=== PATIENT | male | born 1995 | race Caucasian/White ===

== ENCOUNTER 2017-09-01 23:55 | Emergency (ER) | payer OTHER ==
--- NOTE | 2017-09-02 00:25 | ERPHSYRPT ---
- History of Present Illness Time Seen by Provider: 09/02/17 00:16 Source: patient Exam Limitations: no limitations Patient Subjective Stated Complaint: Left testicle hurts, denies swelling, constant pain, feels like its being squeezed Triage Nursing Assessment: Pt A&O x3, stated that his left testicle hurts when he walks, feels like it's being squeezed, pain with palpation, vitals wnl, pulses normal, no change in color or temperature, does not appear to be in distress Physician History: 21-year-old white male arrives with complaint of pain in his left testicle symptoms since 6:30 states it's worse with walking and began after he was mowing the lawn. He denies hitting his groin or any other injury Patient denies any urethral discharge denies dysuria or hematuria. . Past medical history patient denies. Past surgical history patient denies. Timing/Duration: today (6:30 PM), worse Modifying Factors: Improves With: other (walking) Associated Symptoms: No nausea, No vomiting, No abdominal pain, No shortness of breath, No heartburn, No diaphoresis, No cough, No chills, No chest pain, No fever, No headaches, No loss of appetite, No malaise, No rash, No syncope, No seizure, No weakness Allergies/Adverse Reactions: No Known Drug Allergies Allergy (Verified 09/02/17 00:14) Home Medications: No Reportable Medications [No Reported Medications] 09/02/17 [History] - Review of Systems Constitutional: No Fever, No Chills Eyes: No Symptoms Ears, Nose, & Throat: No Symptoms Respiratory: No Cough, No Dyspnea Cardiac: No Chest Pain, No Edema, No Syncope Abdominal/Gastrointestinal: No Abdominal Pain, No Nausea, No Vomiting, No Diarrhea Genitourinary Symptoms: Other (left testicle pain) Musculoskeletal: No Back Pain, No Neck Pain Skin: No Rash Neurological: No Dizziness, No Focal Weakness, No Sensory Changes Psychological: No Symptoms Endocrine: No Symptoms All Other Systems: Reviewed and Negative - Past Medical History Pertinent Past Medical History: No - Past Surgical History Past Surgical History: No Musculoskeletal: Other Other Surgical History: broken pelvis and collarbone - Social History Smoking Status: Never smoker Drug Use: none Patient Lives Alone: No - Nursing Vital Signs Nursing Vital Signs: Initial Vital Signs Temperature 98.5 F 09/02/17 00:02 Pulse Rate 68 09/02/17 00:02 Blood Pressure 131/98 09/02/17 00:02 O2 Sat by Pulse Oximetry 98 09/02/17 00:02 Pain Scale Pain Intensity 0 - Physical Exam General Appearance: no apparent distress, alert Eye Exam: PERRL/EOMI, eyes nml inspection Ears, Nose, Throat Exam: normal ENT inspection, TMs normal, pharynx normal, moist mucous membranes Neck Exam: normal inspection, non-tender, supple, full range of motion Respiratory Exam: normal breath sounds, lungs clear, No respiratory distress Cardiovascular Exam: regular rate/rhythm, normal heart sounds, normal peripheral pulses Gastrointestinal/Abdomen Exam: soft, normal bowel sounds, No tenderness, No mass Male Genitalia Exam: other (normal male genitalia, testicles descended bilaterally no palpable hernia no testicular tenderness with palpapation no signs of torsion) Back Exam: normal inspection, normal range of motion, No CVA tenderness, No vertebral tenderness Extremity Exam: normal inspection, normal range of motion, pelvis stable Neurologic Exam: alert, oriented x 3, cooperative, food service team member II-XII nml as tested, normal mood/affect, nml cerebellar function, nml station & gait, sensation nml, No motor deficits Skin Exam: normal color, warm, dry, No rash Lymphatic Exam: No adenopathy SpO2 Interpretation: normal (98%) SpO2: 98 Oxygen Delivery: Room Air - Course Nursing assessment & vital signs reviewed: Yes Ordered Tests: Active Orders 24 hr Category Date Time Status IV Insertion STAT Care 09/02/17 00:48 Active BMP Stat Lab 09/02/17 00:48 Completed CBC W DIFF Stat Lab 09/02/17 00:48 Completed CULTURE,URINE Stat Lab 09/02/17 02:35 Received UA W/ MICROSCOPIC Stat Lab 09/02/17 02:35 Completed Medication Summary Discontinued Medications Generic Name Dose Route Start Last Admin Trade Name Freq PRN Reason Stop Dose Admin Sodium Chloride 1,000 mls @ 999 mls/hr 09/02/17 00:48 09/02/17 01:39 Sodium Chloride 0.9% 1000 Ml IV 09/02/17 01:48 Infused .Q1H1M STA Infusion Sodium Chloride Confirm 09/02/17 00:54 Sodium Chloride 0.9% 1000 Ml Administered 05/23/18 00:55 Dose 1,000 mls @ ud .ROUTE .STK-MED ONE Sodium Chloride 1,000 mls @ 999 mls/hr 09/02/17 01:32 09/02/17 02:57 Sodium Chloride 0.9% 1000 Ml IV 09/02/17 02:32 Infused .Q1H1M STA Infusion Sodium Chloride Confirm 09/02/17 01:32 Sodium Chloride 0.9% 1000 Ml Administered 09/02/17 01:33 Dose 1,000 mls @ ud .ROUTE .STK-MED ONE Lab/Rad Data: Laboratory Result Diagrams 09/02/17 00:48 09/02/17 00:48 Laboratory Results 09/02/17 09/02/17 09/02/17 Range/Units 02:35 00:48 00:48 WBC 14.3 H (4.0-10.5) K/mm3 RBC 4.92 (4.1-5.6) M/mm3 Hgb 14.8 (12.5-18.0) gm/dl Hct 42.5 (42-50) % MCV 86.4 (78-100) fl MCH 30.1 (26-32) pg MCHC 34.8 (32-36) g/dl RDW 12.4 (11.5-14.0) % Plt Count 305 (150-450) K/mm3 MPV 10.5 H (6-9.5) fl Gran % 61.9 (36.0-66.0) % Eos # (Auto) 0.04 (0-0.5) Absolute Lymphs (auto) 4.02 (1.0-4.6) Absolute Monos (auto) 1.35 H (0.0-1.3) Lymphocytes % 28.2 (24.0-44.0) % Monocytes % 9.5 (0.0-12.0) % Eosinophils % 0.3 (0.00-5.0) % Basophils % 0.1 (0.0-0.4) % Absolute Granulocytes 8.85 H (1.4-6.9) Basophils # 0.02 (0-0.4) Sodium 142 (137-145) mmol/L Potassium 3.8 (3.5-5.1) mmol/L Chloride 101 (98-107) mmol/L Carbon Dioxide 26 (22-30) mmol/L Anion Gap 18.7 H (5-15) MEQ/L BUN 22 H (9-20) mg/dL Creatinine 0.96 (0.66-1.25) mg/dL Estimated GFR > 60.0 ML/MIN Glucose 101 (74-106) mg/dL Calcium 9.4 (8.4-10.2) mg/dL Ur Collection Type VOID Urine Color YELLOW (YELLOW) Urine Appearance HAZY (CLEAR) Urine pH 6.0 (5-6) Ur Specific [place] 1.020 (1.005-1.025) Urine Protein TRACE (Negative) Urine Ketones SMALL (NEGATIVE) Urine Blood 50 (0-5) Willian/ul Urine Nitrite NEGATIVE (NEGATIVE) Urine Bilirubin NEGATIVE (NEGATIVE) Urine Urobilinogen NORMAL (0-1) mg/dL Ur Leukocyte Esterase NEGATIVE (NEGATIVE) Urine Microscopic RBC 2-5 (0-2) /HPF Urine Microscopic WBC 0-2 (0-5) /HPF Ur Epithelial Cells FEW (FEW) /HPF Urine Bacteria MODERATE (NEGATIVE) /HPF Urine Mucus MODERATE (NEGATIVE) /HPF Urine Culture Reflexed YES (NO) Urine Glucose NEGATIVE (NEGATIVE) mg/dL Specimen Received 09/02/17 0235 - Progress Progress: improved Progress Note: 09/02/17 00:26 21-year-old white male arrives with complaint of left testicle pain symptoms since 6:30 after mowing the lawn. He denies any injury states pain is worse with standing. Physical examination testicles descended bilaterally no palpable hernias no tenderness with palpation to the testicles. Will go ahead and obtain CBC BMP UA. Patient offered Toradol for pain he declined. 09/02/17 01:33 Patient has not provided a urine patient's white count is mildly elevated at around 14. Patient offered Toradol again he does not want any. Will give second liter of normal saline. Awaiting urinalysis remainder of labs 09/02/17 02:07 Still awaiting urine from this patient. Patient receiving second liter of normal saline. 09/02/17 02:56 Patient pain-free after 2 L of normal saline. Patient was 2-5 red cells per high-power field otherwise urine is negative. Patient did have a mild the increased white count of 14.3 hemoglobin 14 8 hematocrit 42.5 chemistry essentially normal with the exception and a gap is mildly elevated at 18.7. Will discharge patient. Diagnosis left testicle pain. Ureteral colic. Plan plenty of fluids. Tylenol every 4 hours as needed for pain or Motrin every 6 hours as needed for pain. Patient follow-up with his family doctor. Return for acute distress or for severe symptoms. - Departure Time of Disposition: 02:57 Departure Disposition: Home Clinical Impression: Left testicular pain, Ureteral colic Condition: Fair Critical Care Time: No Referrals: DOCTOR,NO FAMILY [Primary Care Provider] - Additional Instructions: Return home. Plenty of fluids. Tylenol every 4 hours or Motrin every 6 hours as needed for pain. Follow-up with your family doctor. Return for acute distress or for severe symptoms.
[2017-09-02] MEDS ORDERED: Sodium Chloride 0.9% 1000 ML 1,000 ML IV STA ×2 (00:48→01:32)
[2017-09-02] MEDS ORDERED: Sodium Chloride 0.9% 1000 ML 1,000 ML ONE ×2 (00:54→01:32)
[2017-09-02 01:03] LABS: BASOPHIL % 0.1 % (0.0-0.4); Basophil (Absolute #) 0.02 (0-0.4); Eosinophil % 0.3 % (0.00-5.0); Eosinophil (Absolute #) 0.04 (0-0.5); Granulocyte Absolute (ANC) 8.85 (1.4-6.9); Granulocytes % 61.9 % (36.0-66.0); Hematocrit 42.5 % (42-50); Hemoglobin 14.8 gm/dl (12.5-18.0); Lymphocyte (Absolute #) 4.02 (1.0-4.6); Lymphocytes % 28.2 % (24.0-44.0); Mean Cell Volume 86.4 fl (78-100); Mean Corpuscular Hemoglobin 30.1 pg (26-32); Mean Corpuscular Hgb Concent. 34.8 g/dl (32-36); Mean Platelet Volume 10.5 fl (6-9.5); Monocyte (Absolute #) 1.35 (0.0-1.3); Monocytes % 9.5 % (0.0-12.0); Platelet Count 305 K/mm3 (150-450); Red Blood Count 4.92 M/mm3 (4.1-5.6); Red Cell Distribution Width 12.4 % (11.5-14.0); White Blood Count 14.3 K/mm3 (4.0-10.5)
[2017-09-02 01:06] LABS: ANION GAP 18.7 MEQ/L (5-15); BLOOD UREA NITROGEN 22 mg/dL (9-20); CHLORIDE 101 mmol/L (98-107); Calcium 9.4 mg/dL (8.4-10.2); Carbon Dioxide 26 mmol/L (22-30); Creatinine 1 0.96 mg/dL (0.66-1.25); Glucose 101 mg/dL (74-106); Potassium 3.8 mmol/L (3.5-5.1); SODIUM 142 mmol/L (137-145)
[2017-09-02 02:49] LABS: Appearance HAZY (CLEAR); Bilirubin NEGATIVE (NEGATIVE); Blood 50 Ery/ul (0-5); Glucose NEGATIVE (NEGATIVE); Ketones SMALL (NEGATIVE); Leukocyte Esterase NEGATIVE (NEGATIVE); Nitrite NEGATIVE (NEGATIVE); Protein,Urine Dip TRACE (Negative); Urobilinogen NORMAL mg/dL (0-1)
[2017-09-02 02:50] LABS: Bacteria MODERATE /HPF (NEGATIVE); Epithelial Cells FEW /HPF (FEW); Mucus MODERATE /HPF (NEGATIVE); WBC 0-2 /HPF (0-5)
[2017-09-02 02:54] VITALS: BP 113/74; PULSE 66
[2017-09-02 02:58] VITALS: O2SAT 98
== END 2017-09-02 03:07 | disposition home or self-care (01) ==
LOC: ED 23:55
DX: N50.812 Left testicular pain (principal); N23 Unspecified renal colic
CPT/HCPCS: 36000; 36415; 80048; 81000; 85025; 87086; 96360; 99284